=== PATIENT | male | born 1985 | race Caucasian/White ===

== ENCOUNTER 2017-01-28 09:24 | Emergency (ER) | payer MEDICAID, OTHER ==
[~2017-01-28] VITALS: Ht 165.1 cm; Wt 97.5 kg
[2017-01-28 09:44] VITALS: Ht 165.1 cm; Wt 97.5 kg
[2017-01-28] MEDS ORDERED: FAMOTIDINE 20 MG INJ IV STA (11:08)
[2017-01-28] MEDS ORDERED: LIDOCAINE/MYLANTA 40 ML BTL PO STA (11:08)
[2017-01-28 11:43] LABS: BASOPHIL # 0.1 10^3/ul (0.0-0.1); BASOPHILS % 0.3 % (0.0-2.0); EOSINOPHILS # 0.4 10^3/ul (0.0-0.5); EOSINOPHILS % 2.2 % (0.0-7.0); HEMATOCRIT 46.6 % (42.0-52.0); HEMOGLOBIN 16.3 g/dl (14.0-18.0); LYMPHOCYTES # 3.1 10^3/ul (0.8-2.9); LYMPHOCYTES % 19.9 % (15.0-51.0); MEAN CORPUSCULAR VOLUME 88.6 fl (82.0-101.0); MEAN PLATELET VOLUME 10.4 fl (7.4-10.4); MONOCYTE # 1.1 10^3/ul (0.3-0.9); MONOCYTES % 6.6 % (0.0-11.0); NEUTROPHILS % 70.4 % (39.0-77.0); PLATELET COUNT 282 10^3/UL (140-415); RED BLOOD COUNT 5.26 10^6/ul (4.70-6.10); WHITE BLOOD COUNT 15.8 10^3/ul (4.8-10.8)
[2017-01-28 11:48] LABS: ADD UMIC NO; UR ASCORBIC ACID NEGATIVE (NEGATIVE); UR BILIRUBIN (Dip) NEGATIVE (NEGATIVE); UR BLOOD (Dip) NEGATIVE (NEGATIVE); UR CLARITY CLEAR (CLEAR); UR COLOR YELLOW (YELLOW); UR GLUCOSE (Dip) NEGATIVE (NEGATIVE); UR KETONES (Dip) NEGATIVE (NEGATIVE); UR LEUKOCYTE ESTERASE (Dip) NEGATIVE Leu/ul (NEGATIVE); UR NITRITE (Dip) NEGATIVE (NEGATIVE); UR SPECIFIC GRAVITY (Dip) 1.026 (1.003-1.030); UR TOTAL PROTEIN (Dip) NEGATIVE (NEGATIVE); UR UROBILINOGEN (Dip) 1+ mg/dL (NEGATIVE)
--- NOTE | 2017-01-28 11:53 | RADRPT ---
PROCEDURE: US Abdomen. CLINICAL INDICATION: abdominal pain TECHNIQUE: Multiple real-time images were acquired of the patient's right upper quadrant abdomen a nd retroperitoneum utilizing a high resolution transducer. COMPARISON: None FINDINGS: The liver demonstrates increased echogenicity. The liver is normal in size and no focal solid lesio ns are seen. The liver measures 16.4 cm in length. The portal vein is patent with normal direction o f flow. No intrahepatic biliary dilatation is seen. No gallstones are identified within the gallbladder. There is no pericholecystic fluid or gallbladd er wall thickening. The common bile duct measures 2.2 mm in maximal dimension. The visualized portions of the pancreas are unremarkable. The tail of the pancreas is not seen. No free fluid is identified. The right kidney is normal in size, and demonstrate normal echogenicity and cortical thickness. The right kidney measures 10.3 cm in long dimension. There is no evidence of hydronephrosis. There are no kidney stones. RPTAT: AA IMPRESSION: Diffuse fatty infiltration of the liver. No evidence of gallstones. .Anthony Martínez MD, MD Date Time Electronically viewed and signed by .Anthony Martínez MD, on 01/28/2017 11:53 .S/
[2017-01-28 12:03] LABS: ALBUMIN 4.8 g/dl (3.3-4.9); ALBUMIN/GLOBULIN RATIO 1.2; CALCIUM 9.5 mg/dl (8.4-10.2); CREATININE 0.82 mg/dl (0.61-1.24); POTASSIUM 4.1 mmol/L (3.5-5.1); TOTAL PROTEIN 8.8 g/dl (6.1-8.1)
[2017-01-28] MEDS ORDERED: FAMO-96 PO (12:12)
[2017-01-28] MEDS ORDERED: ACET325T33 PO (12:12)
[2017-01-28 12:35] VITALS: BP 166/99; PULSE 80; RESP 16
--- NOTE | 2017-01-28 13:25 | ERD ---
ER Documentation Chief Complaint Date/Time DATE: 01/28/17 TIME: 13:21 Chief Complaint ap with diarrhea starting early this morning HPI 31-year-old male coming in complaining of abdominal pain localized in epigastric region 1 day. Patient states he had mild diarrhea but no blood noted within the stool. He has never had this pain before. He has had no vomiting. He states that the pain occurs in the epigastric region after eating spicy food but then resolved spontaneously. He has not had any recent travel. No sick contacts. Took omeprazole with alleviation of symptoms. ROS All systems reviewed and are negative except as per history of present illness. Medications Home Meds Active Scripts Acetaminophen* (Tylenol*) 325 Mg Tablet, 2 TAB PO Q6 Y for PAIN AND OR ELEVATED TEMP, #20 TAB Prov:DM OLGUIN PA-C 01/28/17 Famotidine* (Pepcid*) 20 Mg Tablet, 20 MG PO BID for 4 Days, TAB Prov:DM OLGUIN PA-C 01/28/17 PMhx/Soc Medical and Surgical Hx: pt denies Medical Hx, pt denies Surgical Hx Hx Alcohol Use: No Hx Substance Use: No Hx Tobacco Use: No Smoking Status: Never smoker Physical Exam Vitals Vital Signs Date Time Temp Pulse Resp B/P Pulse Ox O2 Delivery O2 Flow Rate FiO2 01/28/17 12:35 80 16 166/99 98 Room Air 01/28/17 09:44 98.3 92 18 142/94 99 Physical Exam GENERAL: The patient is well-appearing, well-nourished, in no acute distress CHEST: Clear to auscultation bilaterally. There are no rales, wheezes or rhonchi. HEART: Regular rate and rhythm. No murmurs, clicks, rubs or gallops. No S3 or S4. ABDOMEN: Normoactive bowel sounds. No organomegaly. Soft and nondistended abdomen. Mild tenderness palpation of the right upper quadrant. No right lower quadrant tenderness. BACK: No midline or flank tenderness. Result Diagram: 01/28/17 1117 01/28/17 1117 Results 24 hrs Laboratory Tests Test 01/28/17 11:17 White Blood Count 15.810^3/ul Red Blood Count 5.2610^6/ul Hemoglobin 16.3g/dl Hematocrit 46.6% Mean Corpuscular Volume 88.6fl Mean Corpuscular Hemoglobin 31.0pg Mean Corpuscular Hemoglobin Concent 35.0g/dl Red Cell Distribution Width 13.0% Platelet Count 89728^3/UL Mean Platelet Volume 10.4fl Neutrophils % 70.4% Lymphocytes % 19.9% Monocytes % 6.6% Eosinophils % 2.2% Basophils % 0.3% Nucleated Red Blood Cells % 0.0/100WBC Neutrophils # (Manual) 11.110^3/ul Lymphocytes # 3.110^3/ul Monocytes # 1.110^3/ul Eosinophils # 0.410^3/ul Basophils # 0.110^3/ul Nucleated Red Blood Cells # 0.010^3/ul Urine Color YELLOW Urine Clarity CLEAR Urine pH 5.0 Urine Specific [place] 1.026 Urine Ketones NEGATIVEmg/dL Urine Nitrite NEGATIVEmg/dL Urine Bilirubin NEGATIVEmg/dL Urine Urobilinogen 1+mg/dL Urine Leukocyte Esterase NEGATIVELeu/ul Urine Hemoglobin NEGATIVEmg/dL Urine Glucose NEGATIVEmg/dL Urine Total Protein NEGATIVEmg/dl Sodium Level 142mmol/L Potassium Level 4.1mmol/L Chloride Level 107mmol/L Carbon Dioxide Level 24mmol/L Anion Gap 15 Blood Urea Nitrogen 14mg/dl Creatinine 0.82mg/dl Glucose Level 89mg/dl Calcium Level 9.5mg/dl Total Bilirubin 1.0mg/dl Direct Bilirubin 0.00mg/dl Indirect Bilirubin 1.0mg/dl Aspartate Amino Transf (AST/SGOT) 57IU/L Alanine Aminotransferase (ALT/SGPT) 146IU/L Alkaline Phosphatase 75IU/L Total Protein 8.8g/dl Albumin 4.8g/dl Globulin 4.00g/dl Albumin/Globulin Ratio 1.20 Lipase 44U/L Current Medications Medications (Trade) Dose Ordered Sig/Brian Route PRN Reason Start Time Stop Time Status Last Admin Dose Admin Famotidine (Pepcid Iv) 20 mg ONCE STAT IV 01/28/17 11:08 01/28/17 11:09 DC 01/28/17 11:17 Miscellaneous Medication (Gi Cocktail (2)) 40 ml ONCE STAT PO 01/28/17 11:08 01/28/17 11:09 DC 01/28/17 11:17 Procedures/MDM ER Course: DIAGNOSTIC IMAGING REPORT Patient: ROBERT GEE : 1985 Age: 31 Sex: M MR #: [id number] DOS: 01/28/17 1108 Ordering MD: LEILA OLGUIN PA-C Location: [facility] Room/Bed: PROCEDURE: US Abdomen. CLINICAL INDICATION: abdominal pain TECHNIQUE: Multiple real-time images were acquired of the patient's right upper quadrant abdomen and retroperitoneum utilizing a high resolution transducer. COMPARISON: None FINDINGS: The liver demonstrates increased echogenicity. The liver is normal in size and no focal solid lesions are seen. The liver measures 16.4 cm in length. The portal vein is patent with normal direction of flow. No intrahepatic biliary dilatation is seen. No gallstones are identified within the gallbladder. There is no pericholecystic fluid or gallbladder wall thickening. The common bile duct measures 2.2 mm in maximal dimension. The visualized portions of the pancreas are unremarkable. The tail of the pancreas is not seen. No free fluid is identified. The right kidney is normal in size, and demonstrate normal echogenicity and cortical thickness. The right kidney measures 10.3 cm in long dimension. There is no evidence of hydronephrosis. There are no kidney stones. RPTAT: AA IMPRESSION: Diffuse fatty infiltration of the liver. No evidence of gallstones. GI cocktail given the ED. MDM: 31-year-old male complaining of epigastric pain. I have low suspicion for choledocholithiasis, cholecystitis, cholangitis or pancreatitis. Patient's blood work and imaging was within normal limits. I have low suspicion for cardiac or pulmonary emergency. Patient's exam was not concerning and vital signs are stable. Patient's pain is associated with spicy foods I feel patient' s symptoms are likely associated with GERD. I have low suspicion for peptic ulcer disease or perforated peptic ulcer disease. Patient's pain is not out of proportion with exam. I have low suspicion for vascular insufficiency as patient's pain is not severe tenderness on palpation. Patient will be discharged with strict ER precautions and recommended to follow-up with primary care within 1-2 days for close evaluation. Departure Diagnosis: Primary Impression: Epigastric pain Condition: Stable Patient Instructions: Epigastric Pain (Uncertain Cause) Referrals: COMMUNITY CLINICS YOU HAVE RECEIVED A MEDICAL SCREENING EXAM AND THE RESULTS INDICATE THAT YOU DO NOT HAVE A CONDITION THAT REQUIRES URGENT TREATMENT IN THE EMERGENCY DEPARTMENT. FURTHER EVALUATION AND TREATMENT OF YOUR CONDITION CAN WAIT UNTIL YOU ARE SEEN IN YOUR DOCTORS OFFICE WITHIN THE NEXT 1-2 DAYS. IT IS YOUR RESPONSIBILITY TO MAKE AN APPOINTMENT FOR FOLOW-UP CARE. IF YOU HAVE A PRIMARY DOCTOR --you should call your primary doctor and schedule an appointment IF YOU DO NOT HAVE A PRIMARY DOCTOR YOU CAN CALL OUR PHYSICIAN REFERRAL HOTLINE AT IF YOU CAN NOT AFFORD TO SEE A PHYSICIAN YOU CAN CHOSE FROM THE FOLLOWING [facility] [address] [facility] [facility] [address] [facility] [facility] [address] [facility] [address] [facility] [place] [address] [facility]. [facility] [address] Additional Instructions: FOLLOW UP WITH YOUR PRIMARY CARE PHYSICIAN TOMORROW.Return to this facility if you are not improving as expected. DM OLGUIN PA-C Jan 28, 2017 13:25
== END 2017-01-28 12:36 | disposition home or self-care (01) ==
LOC: FTE 09:24
DX: R10.13 Epigastric pain (principal)
CPT/HCPCS: 36415; 76705; 80053; 81003; 83690; 85025; 96374; Z7502; Z7610